=== PATIENT | female | born 1940 | race Caucasian/White ===

== ENCOUNTER 2016-10-31 11:46 | Day surgery (SDC) | payer OTHER ==
[~2016-10-31] VITALS: Ht 160 cm; Wt 54.5 kg
[~2016-10-31 11:46] MED LIST: ATEN-51 PO; GLIP-95 PO; LOSA25TA2 PO; MTF1000T PO; OMEP20CA16 PO
[2016-10-31 12:58] VITALS: Ht 160 cm; Wt 54.5 kg
[2016-10-31 14:00] VITALS: BP 121/80; PULSE 115; RESP 21
[2016-10-31] MEDS ORDERED: FENTAnyl 50 MCG/ML VIAL ONE (14:01)
[2016-10-31] MEDS ORDERED: LIDOCAINE 100 MG SYRINGE ONE (14:01)
[2016-10-31] MEDS ORDERED: PROPOFOL 40 ML ONE (14:01)
[2016-10-31 14:50] VITALS: BP 103/64; PULSE 107; RESP 18
--- NOTE | 2016-11-01 05:47 | GILP ---
DATE OF PROCEDURE: PROCEDURE: Esophagogastroduodenoscopy with biopsies. PREMEDICATION: Monitored anesthesia care by anesthesiologist. BRIEF HISTORY AND INDICATIONS: The patient with known metastatic gastric CA post gastrojejunostomy in [facility] complaining of persistent abdominal pain, nausea and vomiting. PREMEDICATION: Monitored anesthesia care by anesthesiologist. SURGEON: Cheng Henriquez MD. TECHNIQUE: After informed consent, with the patient understanding the procedure, potential risks and complications, as well as alternatives, the patient was placed in a left lateral decubitus. Follow ing this, Olympus panendoscope was introduced and advanced under visual control. Careful examination of the upper gastrointestinal tract, both on insertion as well as withdrawal of the instrument disclosed the following findings: ESOPHAGUS: The mucosa of the entire esophagus appears within normal limits. There is no evidence of esophagitis, varices, neoplasm or stricture. No hiatal hernia identified. STOMACH: Upon entrance to the stomach air was insufflated, the gastric soares distended normally. The re is gastric jejunostomy in the greater curvature mid body of the stomach which is patent and in al ignment. They raised a very large and friable and obstructing mass in the lesser curvature of the s tomach which appears to occupy at least the distal two-thirds of the stomach, essentially obstructs the outlet at that level. Biopsies were obtained in a limited fashion. PYLORUS: The pylorus appears patent and within normal limits, with no evidence of gastric outlet obs truction. DUODENUM: The duodenal mucosa was carefully examined in the duodenal bulb as well as the second port ion of the duodenum and appears unremarkable with no evidence of duodenitis, ulcer or neoplasm. The instrument was then withdrawn, the patient tolerated the procedure well and was transfer out of the endoscopy suite awake, and in good condition to continue recovery under observation IMPRESSION: 1. Post-gastrojejunostomy patent and in good alignment. 2. Large obstructing mass in the distal two-thirds of the stomach. Biopsies were obtained (known a denocarcinoma). PLAN: We will continue Reglan, Zofran and liquid diet. Review pathology. The patient is pending t o see oncology. Unfortunately, her outlook appears to be extremely poor, and I have discussed the f indings with the patient's family and recommended consideration of palliative care as the patient in [facility] is not performing and appears to be deteriorating rapidly. Dictated By: CHENG HENRIQUEZ MS/ALEJANDRA Conf#: [id number] DID#: [id number]
== END 2016-10-31 16:37 | disposition home or self-care (01) ==
LOC: SUR 11:46 → GIL 11:53 → SUR 16:37
PROVIDERS: ATTEND Internal Medicine Gastroenterology
DX: C16.9 Malignant neoplasm of stomach, unspecified (principal); E11.9 Type 2 diabetes mellitus without complications; I10 Essential (primary) hypertension
CPT/HCPCS: 43239; 82962; 88305; 88312; 88313; J2001; J3010; Z7610